=== PATIENT | male | born 1950 | race Caucasian/White ===

== ENCOUNTER 2017-05-13 16:33 | Outpatient (CLI) | payer MEDICARE, OTHER ==
--- NOTE | 2017-05-14 18:17 | XRAY Report ---
DATE OF SERVICE: 05/13/2017 THREE VIEW LEFT KNEE: 05/13/2017 CLINICAL INDICATION: Chronic knee pain. AP, lateral, sunrise views of the left knee demonstrate moderate osteoarthritis. There is no evidence of acute fracture. No effusion is seen. An old, healed left femoral shaft fracture is incompletely imaged. IMPRESSION: Moderate left knee osteoarthritis. TD: 05/14/2017 19:16
== END 2017-05-13 16:34 | disposition home or self-care (01) ==
LOC: DI 16:33
PROVIDERS: ATTEND Family Medicine
DX: M17.12 Unilateral primary osteoarthritis, left knee (principal)

== ENCOUNTER 2017-06-11 08:41 | Day surgery (SDC) | payer MEDICARE, OTHER ==
[2017-06-11] MEDS ORDERED: LACTATED RINGERS 1,000 ML IV ONE (09:00)
[2017-06-11] MEDS ORDERED: MIDAZOLAM 2 MG/2 ML VIAL IVP ONE (11:20)
[2017-06-11] MEDS ORDERED: fentaNYL 100 MCG/2 ML VIAL IVP ONE (11:20)
[2017-06-11 12:10] VITALS: BP 125/97
== END 2017-06-11 08:42 | disposition home or self-care (01) ==
LOC: SDS 08:41
PROVIDERS: ATTEND Surgery
PROC: 0DBL8ZX Excision of Transverse Colon, Via Natural or Artificial Opening Endoscopic, Diagnostic (ICD-10-PCS; 2017-06-11)
PROC: 0DBP8ZX Excision of Rectum, Via Natural or Artificial Opening Endoscopic, Diagnostic (ICD-10-PCS; principal; 2017-06-11 09:45)
DX: Z12.11 Encounter for screening for malignant neoplasm of colon (principal); D12.3 Benign neoplasm of transverse colon; K62.1 Rectal polyp; K64.8 Other hemorrhoids; Z87.891 Personal history of nicotine dependence
CPT/HCPCS: 45380; J7120

== ENCOUNTER 2019-06-04 12:07 | Outpatient (CLI) | payer MEDICARE, OTHER | END 2019-06-04 12:08 | disposition home or self-care (01) | LOC: LAB 12:07 | PROVIDERS: ATTEND Orthopaedic Surgery | DX: Z51.81 Encounter for therapeutic drug level monitoring (principal); I82.409 Acute embolism and thrombosis of unspecified deep veins of unspecified lower extremity; Z96.652 Presence of left artificial knee joint; Z79.899 Other long term (current) drug therapy | CPT/HCPCS: 85610 ==

== ENCOUNTER 2019-06-09 11:02 | Outpatient (CLI) | payer MEDICARE | END 2019-06-09 11:03 | disposition home or self-care (01) | LOC: LAB 11:02 | PROVIDERS: ATTEND Orthopaedic Surgery | DX: Z51.81 Encounter for therapeutic drug level monitoring (principal); I82.409 Acute embolism and thrombosis of unspecified deep veins of unspecified lower extremity; Z96.652 Presence of left artificial knee joint; Z79.01 Long term (current) use of anticoagulants | CPT/HCPCS: 85610 ==

== ENCOUNTER 2019-06-11 11:34 | Outpatient (CLI) | payer MEDICARE | END 2019-06-11 11:35 | disposition home or self-care (01) | LOC: LAB 11:34 | PROVIDERS: ATTEND Orthopaedic Surgery | DX: Z51.81 Encounter for therapeutic drug level monitoring (principal); Z78.9 Other specified health status; Z96.652 Presence of left artificial knee joint | CPT/HCPCS: 85610 ==

== ENCOUNTER 2019-06-18 14:11 | Outpatient (CLI) | payer MEDICARE | END 2019-06-18 14:12 | disposition home or self-care (01) | LOC: LAB 14:11 | PROVIDERS: ATTEND Orthopaedic Surgery | DX: Z51.81 Encounter for therapeutic drug level monitoring (principal); Z96.652 Presence of left artificial knee joint; Z79.899 Other long term (current) drug therapy; I82.409 Acute embolism and thrombosis of unspecified deep veins of unspecified lower extremity | CPT/HCPCS: 36415; 85610 ==

== ENCOUNTER 2019-06-23 12:34 | Outpatient (CLI) | payer MEDICARE | END 2019-06-23 12:35 | disposition home or self-care (01) | LOC: LAB 12:34 | PROVIDERS: ATTEND Orthopaedic Surgery | DX: Z51.81 Encounter for therapeutic drug level monitoring (principal); Z96.652 Presence of left artificial knee joint; I82.409 Acute embolism and thrombosis of unspecified deep veins of unspecified lower extremity; Z79.899 Other long term (current) drug therapy | CPT/HCPCS: 85610 ==

== ENCOUNTER 2019-06-25 11:14 | Outpatient (CLI) | payer MEDICARE | END 2019-06-25 11:15 | disposition home or self-care (01) | LOC: LAB 11:14 | PROVIDERS: ATTEND Orthopaedic Surgery | DX: Z51.81 Encounter for therapeutic drug level monitoring (principal); Z79.01 Long term (current) use of anticoagulants; Z96.652 Presence of left artificial knee joint | CPT/HCPCS: 85610 ==

== ENCOUNTER 2020-11-27 16:57 | Emergency (ER) | payer MEDICARE ==
[2020-11-27] MEDS ORDERED: TETANUS/DIPHTHERIA/PERTUSSIS 0.5 ML SYRINGE IM ONE (18:56)
--- NOTE | 2020-11-27 19:05 | ED Physician Documentation ---
PD HPI UPPER EXT INJURY - Stated complaint Stated Complaint: LAC LT MID FINGER - Chief complaint Chief Complaint: Laceration - History obtained from History obtained from: Patient - History of Present Illness Location: Left, Finger (middle and index fingers) Type of injury: Laceration (while making dinner) Where injury occurred: Home Timing - onset: How many hours ago (2) Timing - duration: Hours (2) Pain level max: 2 Pain level now: 0 Improved by: Rest Worsened by: Moving, Palpating Associated symptoms: No: Weakness, Numbness, Tingling, Swelling Contributing factors: No: Anticoagulated - Additonal information Additional information: Patient is right-handed. Unknown last tetanus shot. Review of Systems Constitutional: denies: Fever Neurologic: denies: Headache PD PAST MEDICAL HISTORY - Past Medical History Past Medical History: No - Allergies Allergies/Adverse Reactions: Allergies Allergy/AdvReac Type Severity Reaction Status Date / Time No Known Drug Allergies Allergy Verified 11/27/20 17:33 - Living Situation Living Arrangement: reports: At home - Social History Does the pt have substance abuse?: No - Family History Family history: reports: Non contributory - Immunizations Immunizations are current?: No Immunizations: TDAP >10years/unknown PD ED PE NORMAL - Vitals Vital signs reviewed: Yes - General General: Alert and oriented X 3, No acute distress - HEENT HEENT: Moist mucous membranes - Derm Derm: Warm and dry - Extremities Extremities: Other (1 cm laceration to the tip of the left middle finger and tip of the left index finger. No nail involvement. Neurovascular intact.) - Neuro Neuro: Alert and oriented X 3 Results - Vitals Vitals: Vital Signs - 24 hr 11/27/20 11/27/20 17:29 19:13 Temperature 36.2 C L Heart Rate 95 77 Respiratory 16 18 Rate Blood Pressure 154/114 H 161/98 H O2 Saturation 97 99 Oxygen O2 Source Room air Procedures - Laceration (location) left Index and middle finger Length in cm: 2 Wound type: Superficial, Into subcut fat Neurovascular status: Sensory intact, Motor intact, Vascular intact Tendon involvement: Tendon intact Wound preparation: Irrigated copiously NS Skin layer closure: Dermabond Other: Patient tolerated well, No complications, Neurovascular intact, Dressing applied, Tetanus booster given (tdap) PD MEDICAL DECISION MAKING - ED course Complexity details: considered differential, d/w patient ED course: Lacerations repaired with Dermabond. Finger splint was placed to protect the tip of the finger. Neurovascular intact. Tdap given. Warnings of infection and instructions on wound care given at bedside. Also counseled on how to minimize scarring. Patient counseled regarding signs and symptoms for which I believe and urgent re-evaluation would be necessary. Patient with good understanding of and agreement to plan and is comfortable going home at this time This document was made in part using voice recognition software. While efforts are made to proofread this document, sound alike and grammatical errors may occur. Departure - Departure Disposition: Home, Self Care Clinical Impression: Finger laceration Qualifiers: Encounter type: initial encounter Finger: unspecified finger Damage to nail status: without damage Foreign body presence: without foreign body Laterality: left Qualified Code(s): S61.219A - Laceration without foreign body of unspecified finger without damage to nail, initial encounter Condition: Good Instructions: ED Laceration Ext Skin Glue Follow-Up: Benny Sullivan MD [Primary Care Provider] - As Needed Comments: You were given a tetanus shot today. You can wear the finger splint for the next 2 to 3 days to help protect the tip of the finger. Do not apply ointment as this will dissolve the glue. Keep the wound clean. The glue will fall off on its own. Return if you worsen. Return for redness, swelling or drainage from the wound. Discharge Date/Time: 11/27/20 19:21
[2020-11-27 19:21] VITALS: BP 161/98
== END 2020-11-27 19:21 | disposition home or self-care (01) ==
LOC: ED 16:57
DX: S61.213A Laceration without foreign body of left middle finger without damage to nail, initial encounter (principal); S61.211A Laceration without foreign body of left index finger without damage to nail, initial encounter; W26.0XXA Contact with knife, initial encounter; Z23 Encounter for immunization
CPT/HCPCS: 12001; 90471; 99282; 99283

== ENCOUNTER 2023-02-28 12:31 | Outpatient (CLI) | payer MEDICARE ==
--- NOTE | 2023-02-28 14:01 | Ultrasound Report ---
PROCEDURE: Aorta Screening INDICATIONS: HISTORY OF SMOKING TECHNIQUE: Real time scanning was performed of the aorta and iliac arteries, with image documentatio n. COMPARISON: None. FINDINGS: Aorta: Proximal aortic diameter measures 2.8 cm. Mid-aorta measures 2.4 cm. Distal aortic diameter is 2.3 cm. Iliac arteries: Right common iliac artery measures 1.5 cm. Left common iliac artery measures 1.7 cm . IMPRESSION: No aneurysmal dilatation of the aorta. Mild ectasia of the proximal aorta, recommend 5 year follow-up ultrasound. Recommended intervals for follow-up imaging of ectatic aortas and abdominal aortic aneurysms, per ACR consensus guidelines: 2.5-2.9 cm: 5 years 3.0-3.4 cm: 3 years 3.5-3.9 cm: 2 years 4.0-4.4 cm: 1 year 4.5-4.9 cm: 6 months + endovascular referral 5.0-5.5 cm: 3-6 months + endovascular referral Reviewed by: Scotty Jiang MD on 02/28/2023 2:00 PM PST Approved by: Scotty Jiang MD on 02/28/2023 2:00 PM PST Station ID: [id number]
== END 2023-02-28 12:32 | disposition home or self-care (01) ==
LOC: DI 12:31
PROVIDERS: ATTEND Physician Assistant
DX: Z13.6 Encounter for screening for cardiovascular disorders (principal); I77.819 Aortic ectasia, unspecified site; Z87.891 Personal history of nicotine dependence

== ENCOUNTER 2023-06-25 10:24 | Day surgery (SDC) | payer MEDICARE ==
[2023-06-25] MEDS: LACTATED RINGERS 1,000 ML IV ONE ×2 (10:36→12:22)
--- NOTE | 2023-06-25 11:27 | ANESTHESIA ---
Pre-Anesthesia VS, & Labs - Diagnosis history of colon polyps - Procedure colonoscopy Vital Signs: Temp Pulse Resp BP Pulse Ox O2 Flow Rate 36.8 C 96 12 139/99 H 97 06/25/23 10:35 06/25/23 10:35 06/25/23 10:35 06/25/23 10:35 06/25/23 10:35 Height: 5 ft 9 in Weight (kg): 102.51 kg Body Mass Index: 33.3 BMI Classification: Obese - NPO >8 hours Home Medications and Allergies Home Medications: Ambulatory Orders Losartan [Cozaar] 25 mg PO DAILY 06/24/23 Losartan [Cozaar] 25 mg PO DAILY 06/24/23 Allergies/Adverse Reactions: Allergies Allergy/AdvReac Type Severity Reaction Status Date / Time No Known Drug Allergies Allergy Verified 11/27/20 17:33 Anes History & Medical History - Anesthetic History Anesthesia Complications: reports: No previous complications - Medical History Cardiovascular: reports: Hypertension Pulmonary: reports: None Gastrointestinal: reports: Colon polyps Urinary: reports: Other (one kidney) Musculoskeletal: reports: Osteoarthritis Endocrine/Autoimmune: reports: None Skin: reports: None Smoking Status: Never smoker Psychosocial: reports: No issues indicated History of Cancer?: No - Surgical History General: reports: Colonoscopy Urologic: reports: Nephrectomy Orthopedic: reports: Knee replacement Exam General: Alert, Oriented x3, Cooperative, No acute distress Dental: Poor dentition Mouth Openin Fingerbreadth Neck Mobility: Normal Mallampati classification: III Thyromental Distance: 4-6 cm Mental/Cognitive Status: Alert/Oriented X3, Normal for patient Plan Anesthesia Type: General, Total IV Consent for Procedure(s) Verified and Reviewed: Yes Code Status: Attempt Resuscitation ASA classification: 2-Mild systemic disease Is this case an emergency?: No
[2023-06-25] MEDS ORDERED: PROPOFOL 500 MG/50 ML 500 MG/50 ML VIAL ONE (11:30)
[2023-06-25 12:28] VITALS: O2SAT 96
[2023-06-25 12:57] VITALS: BP 109/76
--- NOTE | 2023-06-25 15:02 | ANESTHESIA POST OP EVALUATION ---
Anesthesia Post Eval - Post Anesthesia Eval Vitals: Last Vital Signs Temp 36.6 C 06/25/23 12:45 Pulse 68 06/25/23 12:45 Resp 19 06/25/23 12:45 BP 109/76 06/25/23 12:45 Pulse Ox 96 06/25/23 12:45 O2 Flow Rate CV Function Including HR & BP: Stable Pain Control: Satisfactory Nausea & Vomiting: Negative Mental Status: Baseline Respiratory Status: Airway Patent Hydration Status: Satisfactory Anesthesia Complications: None
== END 2023-06-25 10:25 | disposition home or self-care (01) ==
LOC: SDS 10:24
PROVIDERS: ATTEND Surgery
PROC: 0DBN8ZX Excision of Sigmoid Colon, Via Natural or Artificial Opening Endoscopic, Diagnostic (ICD-10-PCS; 2023-06-25)
PROC: 0DBM8ZX Excision of Descending Colon, Via Natural or Artificial Opening Endoscopic, Diagnostic (ICD-10-PCS; principal; 2023-06-25 12:00)
DX: Z12.11 Encounter for screening for malignant neoplasm of colon (principal); K63.5 Polyp of colon; I10 Essential (primary) hypertension; E66.9 Obesity, unspecified; Z68.33 Body mass index [BMI] 33.0-33.9, adult
CPT/HCPCS: 45380; J7120